=== PATIENT | female | born 1985 | race Caucasian/White ===

== ENCOUNTER 2017-03-07 05:43 | Day surgery (SDC) | payer BC ==
[2017-03-06 13:16] VITALS: BMI 31.6
[2017-03-07] MEDS ORDERED: DEXAMETHASONE SOD PHOSPHATE 4 MG/1 ML VIAL ONE (07:48)
[2017-03-07] MEDS ORDERED: SUCCINYLCHOLINE CHLORIDE 200 MG/10 ML VIAL ONE (07:48)
[2017-03-07] MEDS ORDERED: PROPOFOL 20 ML ONE (07:48)
[2017-03-07] MEDS ORDERED: LIDOCAINE HCL/PF 2% SDV 5ML VIAL ONE (07:48)
[2017-03-07] MEDS ORDERED: MIDAZOLAM HCL 2 MG/2 ML SINGLE DOSE VIAL ONE (07:49)
[2017-03-07] MEDS ORDERED: DESFLURANE GAS 240 ML BOTTLE IH ONE (08:00)
[2017-03-07] MEDS ORDERED: IBUPROFEN 800 MG/8 ML IJ IVPB PRN (09:28)
[2017-03-07] MEDS ORDERED: LACTATED RINGERS SOLUTION 1,000 ML IV SCH (09:30)
--- NOTE | 2017-03-07 09:36 | HP ---
History & Physical Update - History History: No Change - Physical Physical: No Change - Assessment Assessment: No Change - Plan Plan: No Change
[2017-03-07] MEDS ORDERED: IBUPROFEN 600 MG TABLET (FP) PO PRN (09:49)
[2017-03-07] MEDS ORDERED: ONDANSETRON 4 MG/2 ML VIAL IVPUSH PRN (10:17)
[2017-03-07] MEDS ORDERED: oxyCODONE HCL 5 MG TABLET PO PRN (10:17)
--- NOTE | 2017-03-07 10:18 | OP ---
Operative Note - Note: Operative Date: 03/07/17 Pre-Operative Diagnosis: Voluntary sterilization. Dysplasia. HPV Operation: Laparoscopic bilateral salpinectomy. LEEP Findings: Normal tubes and ovaries Post-Operative Diagnosis: Same as Pre-op Surgeon: Lilian Mabry Anesthesia: General Estimated Blood Loss (mls): 10 Operative Report Dictated: Yes
[2017-03-07 10:41] VITALS: TEMP 98.2
[2017-03-07 11:51] VITALS: BP 127/71; PULSE 68
--- NOTE | 2017-03-08 08:35 | OP ---
DATE OF OPERATION: 03/07/2017 PREOPERATIVE DIAGNOSIS: Voluntary sterilization and cervical dysplasia, human papilloma virus. OPERATION: Laparoscopic bilateral salpingectomy and loop electrosurgical excision procedure and cone. POSTOPERATIVE DIAGNOSIS: Voluntary sterilization and cervical dysplasia, human papilloma virus. SURGEON: Lam La MD FUEL ASSEMBLER: ARIANNA Shahid. unavailable. ANESTHESIA: General. ANESTHESIOLOGIST: Keysha Menon MD FINDINGS: Normal tubes and ovaries. PROCEDURE: Patient was taken to the operating room, placed in dorsal lithotomy position, prepped and draped in the usual sterile fashion. A time-out was performed in accordance with hospital regulations. A Mak catheter was inserted into the bladder. Attention was then drawn to the umbilicus, where a 5-mm umbilical incision was made. Veress needle was inserted into the cavity. Approximately 3-4 L of CO2 was insufflated in the cavity. Veress needle was then removed, and a 5-mm trocar was then inserted. Laparoscope and camera were attached. Visualization revealed normal tubes and ovaries. Two 5-mm incisions were made in the lower abdomen on the left and the right sides under direct visualization. Trocars were inserted. LigaSure and grasper were attached. Right tube was grasped and bilateral cautery and cutting of the fallopian tube was done. Hemostasis was achieved. Ureter was identified and was found to have peristalsis. Attention was then drawn to the left side, where the same procedure was repeated. The tube was grasped, and LigaSure was then used to coagulate and cut the fallopian tube away from the uterus. Hemostasis was achieved. Ureter on the left side was identified and found to have peristalsis. Estimated blood loss 5 mL. All CO2 was removed. Trocars were removed from the abdomen. Incisions were then closed using 4-0 Biosyn suture in a subcuticular fashion. Attention was then drawn to the vagina where a speculum was placed in the vagina. Lugols was placed on the cervix. A large LEEP cone was then performed. Cautery of the cervix was then done after LEEP cone was removed. Hemostasis was achieved. Estimated blood loss again was 5 mL. All instruments were removed. Patient tolerated the procedure well and was taken to recovery room in stable condition. LAM LA M.D. STIVEN/[id number]
--- NOTE | 2017-03-08 14:48 | PATH ---
Surgical Pathology Report Patient Name: RONNIE BERNABE [facility]. Rec. #: [id number] /Age/Gender: 1985 (Age: 31) / F Account: [id number] Location: [facility] SURGICAL Taken: 03/07/2017 Received: 03/07/2017 Reported: 03/08/2017 Physicians: Lilian Mabry M.D. Specimen(s) Received A: RIGHT FALLOPIAN TUBE B: LEFT FALLOPIAN TUBE C: LEEP CONE BIOPSY Clinical History Voluntary sterilization, LEEP cone biopsy Final Diagnosis A. RIGHT FALLOPIAN TUBE, SALPINGECTOMY: UNREMARKABLE FALLOPIAN TUBE. B. LEFT FALLOPIAN TUBE, SALPINGECTOMY: UNREMARKABLE FALLOPIAN TUBE. C. CERVIX, LEEP CONE EXCISION: CERVICAL MUCOSA WITH ACUTE AND CHRONIC INFLAMMATION AND REACTIVE CHANGES. AREAS WITH DENUDMENTOF EPITHELIUM PRESENT. NO DYSPLASIA IDENTIFIED. Electronically Signed Timbo Ha M.D. Gross Description A. Received in formalin labeled "right fallopian tube," is a 5 cm in length portion of fallopian tube. The presumed fimbria are separately received within the same container. The outer surface of the fallopian tube is levy-lackey and smooth. Sectioning reveals an unremarkable lumen. Pattern Marker sections are submitted in 2 cassettes as follows: 1-presumed fimbria; 2-cross sections of fallopian tube. B. Received in formalin labeled "left fallopian tube," is a 4.5 cm in length fimbriated fallopian tube. The outer surface is lackey purple and smooth. Sectioning reveals an unremarkable lumen. Pattern Marker sections are submitted in 2 cassettes as follows: 1-fimbria; 2-cross sections of fallopian tube. C. Received in formalin labeled "LEEP cone biopsy," is a 1.3 cm in diameter annular, unoriented portion of tissue, consistent with a cervical LEEP cone biopsy. There is a maciej in the specimen which is arbitrarily designated the 12:00 aspect. The specimen is partially surfaced by a levy-pink mucosa. The specimen is inked blue, serially sectioned and entirely and sequentially submitted in 4 cassettes as follows: 1-12:00 to 3:00; 2-3:00 to 6:00; 3-6:00 to 9:00; 4-9:00 to 12:00. 03/07/2017/2017
== END 2017-03-07 11:51 | disposition home or self-care (01) ==
LOC: JASU-SURG 05:43
PROVIDERS: ATTEND Obstetrics & Gynecology
PROC: 0UT74ZZ Resection of Bilateral Fallopian Tubes, Percutaneous Endoscopic Approach (ICD-10-PCS; principal; 2017-03-07 08:00)
PROC: 0UBC7ZX Excision of Cervix, Via Natural or Artificial Opening, Diagnostic (ICD-10-PCS; 2017-03-07 08:00)
DX: Z30.2 Encounter for sterilization (principal); N87.9 Dysplasia of cervix uteri, unspecified; R87.810 Cervical high risk human papillomavirus (HPV) DNA test positive
CPT/HCPCS: 88302-TC; 88307-TC; 94760